=== PATIENT | female | born 1930 | race Caucasian/White ===

== ENCOUNTER 2017-10-27 14:10 | Outpatient (CLI) | payer MEDICARE, OTHER | END 2017-10-27 14:11 | disposition home or self-care (01) | LOC: BICRAD 14:10 | PROVIDERS: ATTEND Internal Medicine | DX: I10 Essential (primary) hypertension (principal); R91.8 Other nonspecific abnormal finding of lung field | CPT/HCPCS: 71046 ==

== ENCOUNTER 2017-10-28 10:47 | Outpatient (CLI) | payer MEDICARE, OTHER ==
[~2017-10-28 10:47] MED LIST: Iopamidol 370 76% 100 ML VIAL ONE
[2017-10-28 11:13] LABS: Estimated GFR-MDRD - POC Greater than 90
--- NOTE | 2017-10-28 12:20 | CT ---
CHEST CT WITH CONTRAST: HISTORY: The patient was found to have a spot on chest x-ray yesterday. Possible left lung mass versus infilt rate. COMPARISON: 06/04/15. TECHNIQUE: Post contrast CT is performed in the axial plane. Coronal reformatted images are submitted for inter pretation. FINDINGS: No mediastinal mass, lymphadenopathy, or hematoma. Heart size is within normal limits. NO pericardi al effusion. The visualized aorta has a normal caliber. No periaortic fat stranding. Coronary calc ifications are noted. There is fullness of the left adrenal gland, measuring 2.3 x 1.7 cm. Adrenal gland fullness appears to have developed since the previous examination. Evaluation is limited on this examination. No lytic or blastic lesions in the osseous structures. Trachea and central bronchi are patent. Redemonstration of a lobulated and slightly irregular marginated mass in the left lower lobe currentl y measuring 2.9 x 1.7 cm (previously measuring 3.6 x 1.6 cm). Stable linear opacity in the 2 mm in t he short axis dimension. There is a slightly increasing nodule in the middle lobe measuring 0.6 cm. There is a nodule in the right lower lobe measuring 0.7 mm (previously measuring 0.6 mm). A 5 mm no dule in the posterior aspect of the right lower lobe is unchanged. IMPRESSION: Multifocal nodularity of the lung parenchyma. There is slight interval increase in size in some of t he small subcentimeter nodules. The largest nodule/mass has not significantly changed. There is mor e than 2 years of stability in terms of this mass. Nevertheless, as a conservative measure, pulmonar y consultation is recommended. Based on the pulmonary consultation, additional evaluation such as PE T Imaging can be performed. CODE T POS: [facility]
== END 2017-10-28 10:48 | disposition home or self-care (01) ==
LOC: CT 10:47
PROVIDERS: ATTEND Internal Medicine
DX: R91.8 Other nonspecific abnormal finding of lung field (principal)
CPT/HCPCS: 71260

== ENCOUNTER 2017-12-06 13:10 | Outpatient (CLI) | payer MEDICARE, OTHER ==
--- NOTE | 2017-12-06 14:38 | RAD ---
TWO VIEWS CHEST: Comparison: 04-06-16 History: Dyspnea. FINDINGS: Two views of the chest shows a normal sized cardiomediastinal silhouette with atherosclerotic calcifi cations in the aorta. Diffuse increased interstitial markings are stable. There is no evidence of con solidation, mass, or pleural effusion. Degenerative changes are seen in the spine. IMPRESSION: No evidence of acute cardiopulmonary disease. POS: [facility]
== END 2017-12-06 13:11 | disposition home or self-care (01) ==
LOC: RAD 13:10
PROVIDERS: ATTEND Internal Medicine Pulmonary Disease
DX: R06.00 Dyspnea, unspecified (principal)
CPT/HCPCS: 71046